=== PATIENT | male | born 1970 | race Caucasian/White ===

== ENCOUNTER 2019-05-12 16:37 | Emergency (ER) | payer MEDICARE ==
[~2019-05-12] VITALS: Wt 86.2 kg
[~2019-05-12 16:37] MED LIST: AMOXIL500 MG; BACTRIM DS 8001 TA1 PO; BENADRYL ALLERG25 M5 PO; BENADRYL25 MG PO; CLARITIN10 MG PO; DARVOCET A500 51 TAB PO; DARVOCET N 1001 TAB PO; DOMEBORO1 PDR TP; EPI EZ PEN1 MG/ML IM; FLEXERIL5 MG PO; GEODON20 M1 PO; HYDROCODONE BIT1 T11 PO; KENALOG0.1% TP; LORTAB 480 ML480 ML PO; MEDROL DOSEPAK4 MG PO; NAPROSYN500 MG PO; NKHM; NORCO 325 MG-51 TAB PO; OMNICEF250 MG/5 M PO; PERCOCET 325 MG1 TA2 PO; RANITIDINE150 MG; SEPTDS PO; SEPTRA DS 800 M1 TAB PO; VICODIN 5/500 505 MG PO; ZANTAC 150150 MG PO; ZOFRAN ODT4 MG
[2019-05-12 16:38] VITALS: BP 122/73
[2019-05-12] MEDS ORDERED: PREDNISONE10 MG PO (16:56)
== END 2019-05-12 17:08 | disposition home or self-care (01) ==
LOC: ED 16:37
DX: L23.9 Allergic contact dermatitis, unspecified cause (principal); F17.200 Nicotine dependence, unspecified, uncomplicated; Z91.030 Bee allergy status

== ENCOUNTER → 2020-09-18 | Outpatient (CLI) | payer MEDICARE ==
[~2020-09-18] MED LIST changes: +PREDNISONE10 MG PO
== END | disposition home or self-care (01) ==
LOC: COVID19 12:48
PROVIDERS: ATTEND Internal Medicine
DX: Z11.52 Encounter for screening for COVID-19 (principal)

== ENCOUNTER → 2021-07-01 | Outpatient (CLI) | payer MEDICARE | END | disposition home or self-care (01) | LOC: RAD 16:27 | PROVIDERS: ATTEND Internal Medicine | DX: M51.36 Other intervertebral disc degeneration, lumbar region (principal); M85.88 Other specified disorders of bone density and structure, other site ==

== ENCOUNTER → 2021-07-27 | Outpatient (CLI) | payer MEDICARE ==
[2021-07-27 11:22] LABS: BASO # 0.1 10*3/uL (0.0-0.1); BASO % 1.8 % (0.0-1.0); EOS # 0.2 10*3/uL (0.0-0.4); EOS % 3.5 % (1.0-4.0); HEMATOCRIT 44.4 % (42.0-52.0); LYMPH # 1.4 10*3/uL (1.3-4.4); LYMPH % 22.2 % (27.0-41.0); MEAN CELL VOLUME 87.6 fl (80.0-94.0); MEAN CORPUSCULAR HGB CONC 33.1 g/dl (33.0-37.0); MEAN PLATELET VOLUME 8.8 fl (9.6-12.3); MONO # 0.8 10*3/uL (0.1-1.0); NEUT # 3.6 10*3/uL (2.3-7.9); NEUT % 57.9 % (47.0-73.0); PLATELET COUNT AUTOMATED 242 10*3/uL (130-400); RED BLOOD COUNT 5.07 10*6/uL (4.50-5.90); RED CELL DISTRI WIDTH 13.2 % (0-14.5); WHITE BLOOD COUNT 6.2 10*3/uL (4.8-10.8)
[2021-07-27 11:36] LABS: ALBUMIN 3.7 gm/dl (3.1-4.5); ALKALINE PHOSPHATASE 81 U/L (45-117); BUN 15 mg/dl (7-24); CHLORIDE 109 mmol/L (98-107); CREATININE 1.16 mg/dL (0.70-1.30); POTASSIUM 4.2 mmol/L (3.5-5.1); SGOT/AST 27 IU/L (3-35); SGPT/ALT 53 U/L (12-78); SODIUM 141 mmol/L (136-145); TOTAL PROTEIN 7.3 gm/dL (6.4-8.2)
[2021-07-27 11:38] LABS: FREE T4 1.11 ng/dl (0.76-1.46)
== END | disposition home or self-care (01) ==
LOC: LAB 10:59
PROVIDERS: ATTEND Internal Medicine
DX: J43.9 Emphysema, unspecified (principal); E03.9 Hypothyroidism, unspecified

== ENCOUNTER → 2021-07-30 | Outpatient (CLI) | payer MEDICARE | END | disposition home or self-care (01) | LOC: US 00:45 | PROVIDERS: ATTEND Internal Medicine | DX: R10.9 Unspecified abdominal pain (principal); M85.80 Other specified disorders of bone density and structure, unspecified site ==

== ENCOUNTER → 2022-05-27 | Outpatient (CLI) | payer MEDICARE | LOC: RAD 12:13 | PROVIDERS: ATTEND Internal Medicine | DX: M47.816 Spondylosis without myelopathy or radiculopathy, lumbar region (principal); M54.41 Lumbago with sciatica, right side; M25.78 Osteophyte, vertebrae; M47.814 Spondylosis without myelopathy or radiculopathy, thoracic region ==

== ENCOUNTER → 2022-06-20 | Outpatient (CLI) | payer MEDICARE | LOC: RAD 03:54 | PROVIDERS: ATTEND Internal Medicine | DX: M85.89 Other specified disorders of bone density and structure, multiple sites (principal) ==

== ENCOUNTER 2023-06-04 12:18 | Emergency (ER) | payer MEDICARE ==
[~2023-06-04] VITALS: Ht 175.2 cm; Wt 63.5 kg
[2023-06-04 13:14] VITALS: BP 118/71
[2023-06-04] MEDS ORDERED: MELOXICAM15 MG PO (13:21)
[2023-06-04] MEDS ORDERED: PREDNISONE20 M1 PO (13:21)
[2023-06-04] MEDS ORDERED: TRIAMCINOLONE430 GM TD (13:21)
== END 2023-06-04 14:12 | disposition home or self-care (01) ==
LOC: ED 12:18
DX: S20.212A Contusion of left front wall of thorax, initial encounter (principal); L25.9 Unspecified contact dermatitis, unspecified cause; F90.9 Attention-deficit hyperactivity disorder, unspecified type; F31.9 Bipolar disorder, unspecified; Z91.030 Bee allergy status; Z88.8 Allergy status to other drugs, medicaments and biological substances; Z98.890 Other specified postprocedural states; F17.290 Nicotine dependence, other tobacco product, uncomplicated; X50.1XXA Overexertion from prolonged static or awkward postures, initial encounter; Y93.89 Activity, other specified; Y92.89 Other specified places as the place of occurrence of the external cause; Y99.8 Other external cause status

== ENCOUNTER 2024-02-08 22:42 | Emergency (ER) | payer MEDICARE ==
[~2024-02-08] VITALS: Ht 401.3 cm; Wt 63.5 kg
[~2024-02-08 22:42] MED LIST changes: +MELOXICAM15 MG PO; +PREDNISONE20 M1 PO; +TRIAMCINOLONE430 GM TD
[2024-02-08 23:00] VITALS: BP 129/78
[2024-02-08 23:27] LABS: BASO # 0.1 10*3/uL (0.0-0.1); BASO % 1.4 % (0.0-1.0); EOS # 0.2 10*3/uL (0.0-0.4); EOS % 4.3 % (1.0-4.0); HEMATOCRIT 38.2 % (42.0-52.0); LYMPH # 1.7 10*3/uL (1.3-4.4); LYMPH % 29.9 % (27.0-41.0); MEAN CELL VOLUME 89.3 fl (80.0-94.0); MEAN CORPUSCULAR HGB CONC 32.5 g/dl (33.0-37.0); MEAN PLATELET VOLUME 9.1 fl (9.6-12.3); MONO # 0.7 10*3/uL (0.1-1.0); MONO % 11.7 % (3.0-9.0); NEUT # 2.9 10*3/uL (2.3-7.9); NEUT % 52.3 % (47.0-73.0); PLATELET COUNT AUTOMATED 178 10*3/uL (130-400); RED BLOOD COUNT 4.28 10*6/uL (4.50-5.90); RED CELL DISTRI WIDTH 13.7 % (0-14.5); WHITE BLOOD COUNT 5.6 10*3/uL (4.8-10.8)
[2024-02-08 23:50] LABS: ALKALINE PHOSPHATASE 70 U/L (46-116); BUN 9 mg/dl (9-23); CHLORIDE 111 mmol/L (98-107); POTASSIUM 3.7 mmol/L (3.4-5.1); SGPT/ALT 21 U/L (5-49); TOTAL PROTEIN 6.6 gm/dL (6.0-8.0)
[2024-02-09] MEDS ORDERED: MELOXICAM15 MG PO (01:33)
[2024-02-09] MEDS ORDERED: Ketorolac Tromethamine 30 MG/ML VIAL IM ONE (01:40)
== END 2024-02-09 01:38 | disposition home or self-care (01) ==
LOC: ED 22:42
PROVIDERS: Internal Medicine
DX: M94.0 Chondrocostal junction syndrome [Tietze] (principal); F90.9 Attention-deficit hyperactivity disorder, unspecified type; F31.9 Bipolar disorder, unspecified; Z91.030 Bee allergy status; Z88.8 Allergy status to other drugs, medicaments and biological substances; Z91.041 Radiographic dye allergy status; Z98.890 Other specified postprocedural states